=== PATIENT | female | born 2000 | race African-American/Black ===

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

== ENCOUNTER 2023-08-18 09:54 | Outpatient (CLI) | payer BC | END 2023-08-18 09:55 | disposition home or self-care (01) | LOC: ULT 09:54 | PROVIDERS: ATTEND Nurse Practitioner Family | DX: N94.6 Dysmenorrhea, unspecified (principal) | CPT/HCPCS: 76856; 93976 ==

== ENCOUNTER 2024-05-06 02:22 | Emergency (ER) | payer BC | END 2024-05-06 02:46 | disposition home or self-care (01) | LOC: ERS 02:22 | DX: R10.9 Unspecified abdominal pain (principal) | CPT/HCPCS: 99283 ==